=== PATIENT | male | born 1975 | race Asian ===

== ENCOUNTER → 2024-12-14 | Day surgery (SDC) | payer OTHER ==
[~2024-12-14] MED LIST: CEFDINIR300 MG PO; CRESTOR40 MG PO; GLUCAGON FOR INJ 1 MG VIAL ONE; HYOSCYAMINE SULFATE 0.5 MG/ML INJ ONE; LIDOCAINE HCL 2% LOCAL INJ 5 ML SDV VIAL INJ ONE; MULTI-VITAMIN1 EACH PO; PROPOFOL IV EMULSION 10 MG/ML 20 ML VIAL ONE
[2024-12-14] MEDS: LACTATED RINGER'S 1,000 ML ONE (12:28)
[2024-12-14 13:22] VITALS: PULSE 82; RESP 18; O2SAT 96
[2024-12-14] MEDS: ALBUTEROL/IPRATROPIUM 3 ML NEB ONE (13:25)
[2024-12-14 15:02] VITALS: TEMP 97.2
[2024-12-14 15:30] VITALS: BP 123/74; PULSE 64; RESP 15; O2SAT 99
== END | disposition home or self-care (01) ==
LOC: OR 12:15
PROVIDERS: ATTEND Internal Medicine Gastroenterology
DX: Z12.11 Encounter for screening for malignant neoplasm of colon (principal); D12.3 Benign neoplasm of transverse colon; D12.4 Benign neoplasm of descending colon; D12.5 Benign neoplasm of sigmoid colon; K64.8 Other hemorrhoids; E78.5 Hyperlipidemia, unspecified; Z71.89 Other specified counseling; Z01.810 Encounter for preprocedural cardiovascular examination; Z79.899 Other long term (current) drug therapy; Z68.29 Body mass index [BMI] 29.0-29.9, adult; Z71.3 Dietary counseling and surveillance
CPT/HCPCS: 45385; 93005; 94640; 94799; J1610; J1980; J2003; J2704; J7121